=== PATIENT | male | born 1970 | race Two or more races ===

== ENCOUNTER 2019-04-25 11:37 | Outpatient (CLI) | payer OTHER ==
[~2019-04-25] VITALS: Ht 177.8 cm; Wt 97.5 kg
== END 2019-04-25 13:22 | disposition home or self-care (01) ==
LOC: OFIC 805 11:37
DX: H69.83 Other specified disorders of Eustachian tube, bilateral (principal); H93.12 Tinnitus, left ear; G44.209 Tension-type headache, unspecified, not intractable